=== PATIENT | male | born 1950 | race Two or more races ===

== ENCOUNTER 2020-06-30 21:04 | Emergency (ER) | payer MEDICARE ==
[~2020-06-30] VITALS: Ht 167.6 cm; Wt 77.0 kg
[2020-06-30] MEDS ORDERED: MORPHINE SULFATE 4 MG/ML CPJ (NOT FOR IM USE) IV ONE (23:15)
[2020-06-30] MEDS ORDERED: ONDANSETRON HCL 4MG/2ML INJ IV ONE (23:15)
[2020-07-01 01:03] LABS: CHLORIDE 106 mEq/L (98-107)
[2020-07-01] MEDS ORDERED: IOHEXOL-300 100 ML BOTTLE ONE (02:06)
[2020-07-01] MEDS ORDERED: HYDROCODONE/ACETAMINOPHEN 5/325MG TABLET PO NR (03:15)
[2020-07-01] MEDS ORDERED: TETANUS, DIPHTHERIA, PERTUSSIS VAC/PF 0.5ML (>7YR OLD) IM ONE (03:30)
[2020-07-01 04:00] VITALS: BP 136/83
== END 2020-07-01 04:00 | disposition home or self-care (01) ==
LOC: ER 21:04
DX: S09.8XXA Other specified injuries of head, initial encounter (principal); S01.81XA Laceration without foreign body of other part of head, initial encounter; Y08.89XA Assault by other specified means, initial encounter; Y93.89 Activity, other specified; Y92.9 Unspecified place or not applicable
CPT/HCPCS: 12013; 36415; 70450; 70480; 72125; 74177; 80048; 90471; 90715; 93005; 96374; 96375; 99285; J2270; J2405; Q9967